=== PATIENT | female | born 1930 | race Caucasian/White ===

== ENCOUNTER → 2016-06-16 | Outpatient (CLI) | payer MEDICARE, BC ==
[~2016-06-16] MED LIST: ARICEPT DPS5 MG PO; ASA CHILDREN'S81 MG PO; BACTRIM DS DPS1 TAB PO; MAALOX DPS30 ML PO; MILK OF MAGNESI10 ML PO; NORVASC DPS10 MG PO; REMERON DPS15 MG PO; SYNTHROID DP0.075 MG PO; TOPROL XL DPS25 MG PO; TYLENOL DPS325 MG PO; [UNRECOGNIZED DRUG - OTHER] PO
== END | disposition home or self-care (01) ==
LOC: THER.SSS 12:55
DX: D64.9 Anemia, unspecified (principal)

== ENCOUNTER → 2016-08-23 | Outpatient (CLI) | payer MEDICARE, BC | END | disposition home or self-care (01) | LOC: RAD.S 12:00 | DX: M25.461 Effusion, right knee (principal); M17.11 Unilateral primary osteoarthritis, right knee ==